=== PATIENT | female | born 1965 | race Caucasian/White ===

== ENCOUNTER 2021-10-12 09:26 | Emergency (ER) | payer BC, OTHER ==
[~2021-10-12] VITALS: Ht 167.6 cm; Wt 61.4 kg
[2021-10-12] MEDS ORDERED: diphenhydrAMINE 50 mg/ml inj IV ONE (09:35)
[2021-10-12] MEDS ORDERED: famotidine/PF 10 mg/ml inj IV ONE (09:35)
[2021-10-12] MEDS ORDERED: methylPREDNISolone sod succ 125mg/2ml vial IV ONE (09:35)
[2021-10-12] MEDS ORDERED: epiNEPHrine 1 mg/ml inj SQ ONE (09:35)
[2021-10-12] MEDS ORDERED: normal saline 1000ML IV soln IVB STA (09:35)
[2021-10-12] MEDS ORDERED: triamcinolone acetonide 40mg/ml inj IM ONE (09:35)
[2021-10-12] MEDS ORDERED: LORazepam 2 mg/ml vial IV ONE (09:40)
[2021-10-12 11:00] LABS: CLARITY,URINE CLEAR (Clear); COLOR,URINE YELLOW (Yellow); GLUCOSE, URINE NEGATIVE (Neg); KETONES,URINE NEGATIVE (Neg); LEUKOCYTE ESTERASE ,URINE NEGATIVE (Neg); NITRITES, URINE NEGATIVE (Neg); OCCULT BLOOD,URINE NEGATIVE (Neg); PROTEIN,URINE NEGATIVE (Neg); UROBILINOGEN,URINE 0.2 E.U/dL (0.2-1.0)
[2021-10-12 11:02] LABS: UA COLLECTION TYPE NON-SPECIFIED
[2021-10-12] MEDS ORDERED: EPIN0.3P3 IM (12:08)
[2021-10-12 12:53] VITALS: BP 109/71
== END 2021-10-12 13:04 | disposition home or self-care (01) ==
LOC: ER 09:27
DX: L29.9 Pruritus, unspecified (principal); T36.1X5A Adverse effect of cephalosporins and other beta-lactam antibiotics, initial encounter; Z90.89 Acquired absence of other organs; Z88.1 Allergy status to other antibiotic agents; Z79.899 Other long term (current) drug therapy; Y92.89 Other specified places as the place of occurrence of the external cause
CPT/HCPCS: 81003; 96361; 96372; 96374; 96375; 99291; J0171; J1200; J2060; J2930; J3301; J3490; J7030